=== PATIENT | female | born 1995 | race American Indian/Alaskan Native ===

== ENCOUNTER 2018-08-30 07:51 | Emergency (ER) | payer MEDICAID, OTHER ==
[2018-08-30 07:51] VITALS: BMI 40.6
[2018-08-30 08:08] VITALS: TEMP 98.2
--- NOTE | 2018-08-30 08:28 | ED PDOC ---
Arrival/HPI - History of Present Illness Narrative History of Present Illness (Text): 08/30/18 08:20 23 y/o F presents to ED with complaints of significant pain and swelling involving the L upper arch in the region of the 2nd and 3rd molars. Pt reports pain has started yesterday and is constant in nature, that was alleviated with ibuprofen. She reports 102F fever yesterday. She denies current subjective fever, chills, chest pain, palpitations, shortness of breath, nausea, vomiting, constipation, diarrhea, dysuria. Time/Duration: Prior to Arrival Symptom Onset: Gradual Symptom Course: Unchanged Severity Level: Moderate Activities at Onset: Rest <Miesha Britt - Last Filed: 08/30/18 08:45> <Rito Mckoy - Last Filed: 08/30/18 10:49> - General Chief Complaint: Dental Pain Time Seen by Provider: 08/30/18 08:07 Past Medical History - Provider Review Nursing Documentation Reviewed: Yes - Cardiac Hx Cardiac Disorders: No Hx Hypertension: No - Psychiatric Hx Depression: No Hx Substance Use: No - Surgical History Other/Comment: L leg - Anesthesia Hx Anesthesia: Yes Hx Anesthesia Reactions: No Hx Malignant Hyperthermia: No <Miesha Britt - Last Filed: 08/30/18 08:45> Family/Social History - Physician Review Nursing Documentation Reviewed: Yes Family/Social History: Unknown Family HX Smoking Status: Never Smoked Hx Alcohol Use: No Hx Substance Use: No <Miesha Britt - Last Filed: 08/30/18 08:45> Allergies/Home Meds <Miesha Britt - Last Filed: 08/30/18 08:45> <Rito Mckoy - Last Filed: 08/30/18 10:49> Allergies/Adverse Reactions: Allergies No Known Allergies Allergy (Verified 07/02/18 20:07) Home Medications: Home Meds Medication Instructions Recorded Confirmed Pnv No.95/Ferrous Fum/Folic AC 1 tab PO DAILY MDD 1 07/14/18 07/14/18 [ Vitamin Tablet] Review of Systems - Review of Systems Constitutional: Normal Eyes: Normal ENT: Other (dental pain) Respiratory: Normal Cardiovascular: Normal Gastrointestinal: Normal Genitourinary Female: Normal Musculoskeletal: Normal Skin: Normal Neurological: Normal Endocrine: Normal Hemo/Lymphatic: Normal Psychiatric: Normal <Miesha Britt Last Filed: 08/30/18 08:45> Physical Exam Vital Signs Reviewed: Yes Vital Signs Temp Pulse Resp BP Pulse Ox 08/30/18 07:51 98.2 F 74 18 127/85 97 Temperature: Afebrile Blood Pressure: Normal Pulse: Regular Respiratory Rate: Normal Appearance: Positive for: Well-Appearing, Non-Toxic, Comfortable Pain Distress: None Mental Status: Positive for: Alert and Oriented X 3 - Systems Exam Head: Present: Atraumatic, Normocephalic, Swelling (minimal swelling involving L maxillary region) Pupils: Present: PERRL Extroacular Muscles: Present: EOMI Conjunctiva: Present: Normal Mouth: Present: Moist Mucous Membranes, Other (L upper arch 3rd molar visible and tender to palpation. Dental caries noted. No erythema/exudates noted) Neck: Present: Normal Range of Motion Respiratory/Chest: Present: Clear to Auscultation, Good Air Exchange. No: Respiratory Distress, Accessory Muscle Use Cardiovascular: Present: Regular Rate and Rhythm, Normal S1, S2. No: Murmurs Abdomen: No: Tenderness, Distention, Peritoneal Signs Back: Present: Normal Inspection Upper Extremity: Present: Normal Inspection. No: Cyanosis, Edema Lower Extremity: Present: Normal Inspection. No: Edema Neurological: Present: GCS=15, CN II-XII Intact, Speech Normal Skin: Present: Warm, Dry, Normal Color. No: Rashes Psychiatric: Present: Alert, Oriented x 3, Normal Insight, Normal Concentration <Miesha Britt Last Filed: 08/30/18 08:45> Vital Signs Temp Pulse Resp BP Pulse Ox 08/30/18 09:00 76 16 119/77 99 08/30/18 07:51 98.2 F 74 18 127/85 97 <Rito Mckoy - Last Filed: 08/30/18 10:49> Medical Decision Making ED Course and Treatment: 08/30/18 08:30 Impression: 23 y/o F presenting with L upper arch molar dental pain Differential diagnosis includes but not limited to: dental pain Plan: Ibuprofren Augmentin x 7 days Reassess & dispo Progress notes: 08/30/18 08:45 Pt re-evaluated, reports improvement in pain. Vital signs stable. Pt in understanding with plan. <Miesha Britt Last Filed: 08/30/18 08:45> ED Course and Treatment: 08/30/18 08:47 Patient is a 23 year old female presenting to the emergency department complaining of dental pain. In agreement with resident note, which includes further HPI details. Patient was seen and evaluated with resident, came up with plan and treatment together. - Medication Orders Current Medication Orders: Discontinued Medications Ibuprofen (Motrin Tab) 800 mg PO STAT STA Stop: 08/30/18 08:33 Last Admin: 08/30/18 08:39 Dose: 800 mg <Rito Mckoy - Last Filed: 08/30/18 10:49> - PA / SANITOR / Resident Statement / has reviewed & agrees with the documentation as recorded. / has examined the patient and agrees with the treatment plan. <Miesha Britt - Last Filed: 08/30/18 08:45> - PA / SANITOR / Resident Statement / has reviewed & agrees with the documentation as recorded. / has examined the patient and agrees with the treatment plan. - Scribe Statement The provider has reviewed the documentation as recorded by the Seanibluis Dahl All medical record entries made by the Jose were at my direction and personally dictated by me. I have reviewed the chart and agree that the record accurately reflects my personal performance of the history, physical exam, medical decision making, and the department course for this patient. I have also personally directed, reviewed, and agree with the discharge instructions and disposition. <Rito Mckoy - Last Filed: 08/30/18 10:49> Disposition/Present on Arrival - Present on Arrival Any Indicators Present on Arrival: No History of DVT/PE: No History of Uncontrolled Diabetes: No Urinary Catheter: No History of Decub. Ulcer: No History Surgical Site Infection Following: None - Disposition Have Diagnosis and Disposition been Completed?: Yes Disposition Time: 08:45 <Miesha Britt - Last Filed: 08/30/18 08:45> <Rtio Mckoy - Last Filed: 08/30/18 10:49> - Disposition Diagnosis: Pain, dental Disposition: HOME/ ROUTINE Condition: GOOD Discharge Instructions (ExitCare): Dental Pain (DC) Additional Instructions: Thank you for letting us take care of you today. The emergency medical care you received today was directed at your acute symptoms. If you were prescribed any medication, please fill it and take as directed. It may take several days for your symptoms to resolve. Return to the Emergency Department if your symptoms worsen, do not improve, or if you have any other problems. Please contact your doctor or call one of the physicians/clinics you have been referred to that are listed on the Patient Visit Information form that is included in your discharge packet. Bring any paperwork you were given at discharge with you along with any medications you are taking to your follow up visit. Our treatment cannot replace ongoing medical care by a primary care provider outside of the emergency department. Thank you for allowing the [facility] team to be part of your care today. Please follow-up with your dentist within the next week. Prescriptions: Amoxicillin/Clavulanate [Augmentin 875 MG-125 MG] 1 tab PO BID 7 Days #14 tab Forms: [employer] ([place])
[2018-08-30 09:22] VITALS: BP 119/77; PULSE 76; RESP 16; O2SAT 99
== END 2018-08-30 09:27 | disposition home or self-care (01) ==
LOC: ED 07:51
DX: K08.89 Other specified disorders of teeth and supporting structures (principal)